=== PATIENT | male | born 1995 | race Caucasian/White ===

== ENCOUNTER 2019-04-01 14:25 | Emergency (ER) | payer BC, OTHER ==
[2019-04-01 15:39] VITALS: BP 114/64
== END 2019-04-01 16:48 | disposition home or self-care (01) ==
LOC: ER 14:39
DX: S01.01XA Laceration without foreign body of scalp, initial encounter (principal); G40.909 Epilepsy, unspecified, not intractable, without status epilepticus; Z88.8 Allergy status to other drugs, medicaments and biological substances; Z87.442 Personal history of urinary calculi; W18.09XA Striking against other object with subsequent fall, initial encounter; Y93.89 Activity, other specified; Y92.89 Other specified places as the place of occurrence of the external cause; Y99.8 Other external cause status
CPT/HCPCS: 12002; 70450